=== PATIENT | female | born 1980 | race Caucasian/White ===

== ENCOUNTER 2017-03-17 04:09 | Emergency (ER) | payer SELFPAY ==
[~2017-03-17] VITALS: Ht 175.3 cm; Wt 52.0 kg
[~2017-03-17 04:09] MED LIST: OXYC30TA3 PO; PROM25SU8 PO
[2017-03-17 04:10] VITALS: BP 191/105; PULSE 95; RESP 16; TEMP 98; O2SAT 100
[2017-03-17] MEDS ORDERED: SULFAMETHOXAZOLE-TRIMETHOPRIM DS 800-160 MG TAB PO ONE (05:15)
[2017-03-17] MEDS ORDERED: CLINDAMYCIN PHOS 600 MG/4 ML VIAL IM ONE (05:15)
[2017-03-17] MEDS ORDERED: CLEO300C2 PO (05:15)
[2017-03-17] MEDS ORDERED: BACT800T5 PO (05:15)
--- NOTE | 2017-03-17 05:22 | PD ---
HPI Chief Complaint: Lump, Cyst, Hernia Time Seen by Provider: 05:08 Travel History International Travel<30 days: No Contact w/Intl Traveler<30days: No Traveled to known affect area: No History of Present Illness HPI 36-year-old white female presents to emergency department for evaluation of a possible spider bite to her right synagogue. She states that she had a pimple develop over the last few days which she had squeezed. Her right side of her head is now become increasingly painful, swollen and tender. Patient's had a history of staph infections in the past as well as substance abuse. She denies any fever chills. No nausea vomiting. PFSH Past Medical History Narrative Medical Depression, MRSA, necrotizing fasciitis, substance abuse Bipolar Disorder: Yes Depression: Yes Immunizations Current: Yes Tetanus Vaccination: > 5 Years Influenza Vaccination: No ?: Not : 2 Para: 2 Tubal Ligation: Yes Past Surgical History Narrative Surgical Excision of necrotizing fasciitis left arm, tubal ligation Gynecologic Surgery: Yes (TUBAL LIGATION) Social History Alcohol Use: Yes (OCCASIONAL BEER, WINE) Tobacco Use: Yes (1 PPD) Substance Use: Yes ([place] 30 MG 6-9 DAILY) Allergies-Medications (Allergen,Severity, Reaction): Coded Allergies: penicillin G (Unverified Allergy, Severe, 03/17/17) Reported Meds & Prescriptions Reported Meds & Active Scripts Active Cleocin (Clindamycin HCl) 300 Mg Cap 300 Mg PO Q6H 10 Days Bactrim DS (Sulfamethoxazole-Trimethoprim) 800-160 Mg Tab 1 Tab PO BID Promethazine Hcl (Promethazine HCl) 25 Mg Tab 25 Mg PO Q6HPRN FOR NAUSEA/VOMITING Reported Roxicodone (Oxycodone HCl) 30 Mg Tab 30 Mg PO STATES TAKES ILLEGALLY AND TAKES 6-9/DAY Review of Systems General / Constitutional: No: Fever Eyes: No: Visual changes HENT: No: Headaches Cardiovascular: No: Chest Pain or Discomfort Respiratory: No: Shortness of Breath Gastrointestinal: No: Abdominal Pain Genitourinary: No: Dysuria Musculoskeletal: No: Pain Skin: Positive Rash, Positive Itching, Positive Lumps, Positive Lesions Neurologic: Positive: Headache, No: Weakness Psychiatric: No: Depression Endocrine: No: Polydipsia Hematologic/Lymphatic: No: Easy Bruising Physical Exam Narrative GENERAL: Well-developed, well-nourished in no acute distress. Nontoxic appearing. HEAD: Patient has some soft tissue swelling to the right forehead and temporal region. Patient has a 2 x 2 central fluctuant abscess which is open and draining.. EYES: Pupils equal round and reactive. Extraocular motions intact. No scleral icterus. No injection or drainage. ENT: TMs clear without erythema. The external auditory canals clear. Nose: clear . Posterior pharynx is pink and moist. No tonsillar edema or exudate. Uvula midline. Airway patent. NECK: Trachea midline.Supple, nontender, moves head freely. No central bony tenderness or spasm. CARDIOVASCULAR: Regular rate and rhythm without murmurs, gallops, or rubs. RESPIRATORY: Clear to auscultation. Breath sounds equal bilaterally. No wheezes , rales, or rhonchi. GASTROINTESTINAL: Abdomen soft, non-tender, nondistended. No hepato-splenomegaly , or palpable masses. No guarding. EXTREMITIES: No clubbing, cyanosis, or edema. No joint tenderness, effusion, or edema noted. BACK: Nontender without deformity or crepitance. No flank tenderness. Data Data Last Documented VS Vital Signs Date Time Temp Pulse Resp B/P (MAP) Pulse Ox O2 Delivery O2 Flow Rate FiO2 03/17/17 04:10 98.0 95 16 191/105 (133) 100 Room Air Orders Orders Clindamycin Inj (Cleocin Inj) (03/17/17 05:15) Sulfamet-Trimeth Ds 800-160 Mg (Bactrim (03/17/17 05:15) Ed Discharge Order (03/17/17 05:14) [facility] Medical Decision Making Medical Screen Exam Complete: Yes Emergency Medical Condition: Yes Medical Record Reviewed: Yes Differential Diagnosis MDM: High Differential diagnoses: Abscess, folliculitis, cellulitis, lymphangitis, abrasion, contact dermatitis Narrative Course Patient has an open draining abscess to her right temporal region. There is no fluctuance or pointing. Patient is given clindamycin 600 mg IM and Bactrim DS by mouth. Patient also states that she's had a known history of hypertension but chooses not to treat it. This is facial abscess, hypertension Diagnosis Primary Impression: Facial abscess Additional Impression: hypertension Patient Instructions: General Instructions Additional Instructions: Rest. Elevation. keep clean and dry. Warm compresses. Daily wound care with soap, water and Neosporin. Three Advil every 6 hours. Clindamycin and Bactrim DS. Follow-up with a primary care doctor in 2-3 days Return to the ER for any problems. Med/Other Pt SpecificInfo: Prescription(s) given, Wound Care Scripts Clindamycin (Cleocin) 300 Mg Cap 300 MG PO Q6H for Infection for 10 Days, #40 CAP 0 Refills Prov: Saturnino Curiel MD 03/17/17 Sulfamethoxazole-Trimethoprim (Bactrim DS) 800-160 Mg Tab 1 TAB PO BID for Infection, #20 TAB 0 Refills Prov: Saturnino Curiel MD 03/17/17 Disposition: 01 DISCHARGE HOME Condition: Stable Luis Perkins Mar 17, 2017 05:22
[2017-03-17] MEDS ORDERED: TETANUS/DIPHTHERIA TOXOID ADULT 0.5 ML VIAL IM ONE (05:30)
[2017-03-17 05:37] VITALS: BP 178/89; PULSE 90; RESP 44; O2SAT 99
== END 2017-03-17 06:16 | disposition home or self-care (01) ==
LOC: NEPD 04:09
DX: L02.01 Cutaneous abscess of face (principal); I10 Essential (primary) hypertension; F31.9 Bipolar disorder, unspecified; Z23 Encounter for immunization
CPT/HCPCS: 90471; 90714; 96372